=== PATIENT | female | born 2000 | race American Indian/Alaskan Native ===

== ENCOUNTER 2025-04-10 13:22 | Outpatient (AMB) | payer BC, SELFPAY ==
--- NOTE | 2025-04-10 13:27 | OBCLNT_ITS ---
Vital Signs 04/10/25 13:40 Height 1.6 m Height Method Stated Weight 93.213 kg BMI 36.3 BP 114/69 Blood Pressure Source Automatic Cuff Blood Pressure Location Left Upper Arm Position Sitting Respiration 16 Pulse 83 Pulse Source Monitor Temp 97.2 F Temp Source Oral Pulse Oximetry (%) 97 Oxygen Delivery Method Room Air Allergies/Home Meds Allergies & Medications Allergies No Known Allergies Allergy (Verified 04/10/25 13:41) Medication Reconciliation vits no.124-ferrous fum 27 mg iron-folic acid 800 mcg tablet ( Vitamin) 1 tab PO QDAY 12/20/23 [History Confirmed 04/10/25] ferrous sulfate 325 mg (65 mg iron) tablet 325 mg PO TID #60 tabs 12/21/23 [Rx Confirmed 04/10/25] ibuprofen 800 mg tablet 800 mg PO Q8H PRN pain #30 tabs 12/21/23 [Rx Confirmed 04/10/25] ferrous sulfate 325 mg (65 mg iron) tablet 325 mg PO BID #60 tabs 04/10/25 [Rx] Intake Visit Data Collection New Patient or Established: Established Patient (seen at [facility] within 3 years) Reason for Visit:: obi Seen by Clinical Staff ONLY (RN/MA): No Rn Labor And Delivery Required: No Do You Feel Safe at Home: Yes Authorities Contacted: N/A PCP or OBGYN visit in last 3 months: Yes Hx Now: Yes Are you currently on any form of Control: No Last menstrual period: 09/20/24 Pain Present Currently: No Pain Scale Used: Baum-Golden/Numerical Pain scale:: 0 Smoking Status Smoking Status: Never smoker Questionnaires Covid-19 Vaccine Questionnaire Has patient been vacinated for Covid-19 Have you been vacinated for Covid-19: No PHQ-9 PHQ-2 Over the last 2 weeks, how often have you been bothered by any of the following problems? 1. Little interest or pleasure in doing things: not at all 2. Feeling down, depressed, or hopeless: not at all Total score: 0 PHQ-9 3. Trouble falling or staying asleep, or sleeping too much: Not at all 4. Feeling tired or having little energy: Not at all 5. Poor appetite or overeating: Not at all 6. Feeling bad about yourself - or that you are a failure or have let yourself or your family down: Not at all 7. Trouble concentrating on things, such as reading the newspaper or watching television: Not at all 8. Moving or speaking so slowly that other people could have noticed? - Or the opposite - being so fidgety or restless that you have been moving around a lot more than usual: not at all 9. Thoughts that you would be better off or of hurting yourself in some way: Not at all Total score: 0 If you checked off any problems, how difficult have these problems made it for you to do your work, take care of things at home, or get along with other people?: not difficult at all Source: Developed by Drs. John Alonzo, Marsha Funez, Rakesh Bernabe and colleagues, with an educational uri from [employer]. Depression screen completed yes Social History Living Situation History Marital Status: Single Lives With: Family Housing: House Tobacco History Smoking Status: Never smoker Second Hand Smoke Exposure: No Alcohol History Alcohol Intake: Never Domestic Abuse History Do You Feel Safe at Home: Yes History of Present Illness HPI Narrative 25-year-old 4 para 3 for OBI. Last. September 19, 2024. Estimated due date June 26, 2025. Patient had a 3D scan at 28 weeks that also reported the same dates. She has had no care yet with patient denies any social habits. Denies surgeries. She has a history of anemia. And she had a delivery at 23 weeks. She reports that she had opted to get an was given laminaria and then decided she did not want to go through the had the laminaria removed and then delivered . Reports movement. Denies any complaints. 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: Past Medical History Past Medical History: No Hx Neurological Disorders, No Hx Cardiac Disorders, No Hx Cancer, Yes Hx Blood Disorders, Yes Hx Anemia, No Hx Gastrointestinal Disorders, No Hx Renal Disease, Yes Hx Diabetes Mellitus Type 1 (grandmother) and No Hx Diabetes Mellitus Type 2 OB Initial Visit Menstrual History Menstrual reliability: definite Flow: normal Menstrual regularity: regular Monthly: Yes Age at menarche: 14 On control pills at conception: No OB History : 5 Para: 3 Hx # Pregnancies: 0 Hx Total # of Abortions (Spontaneous & Elective): 1 # of Living Children: 3 Delivery History 1st : Child's name: trudy SINGH date: 12/23/19 sex: female Gestational age at delivery (weeks): 40 Delivery type: vaginal History of depression before or after : No 2nd : Child's name: MALKA NARAYANAN date: 08/30/22 sex: female Gestational age at delivery (weeks): 40 Delivery type: vaginal 3rd : Child's name: SWETA NARAYANAN date: 12/20/23 sex: male Gestational age at delivery (weeks): 23 Delivery type: vaginal Delivery complications: History of depression before or after : No Infection History & Risk Evaluation History of STDs: none HIV risk evaluation: low risk Hepatitis B risk evaluation: low risk Patient or partner has history of Genital Herpes: No Varicella/chicken pox status: immunized Genetic Screening & History Genetic Screening/Teratology Counseling - Includes patient, baby's father, or anyone in either family with: 1. Patient's age 35 years or older as of estimated date of delivery: No 2. Thalassemia (Slovenian, Croatian, Mediterranean, or Background); MCV less than 80: No 3. Neural Tube Defect (Meningomyelocele, Spina Bifida, or Anencephaly): No 4. Congenital Heart Defect: No 5. Down Syndrome: No 6. Yoseph-Sachs (Ashkenazi Restoration, Cajun, English Swedish): No 7. Martinez Disease (Ashkenazi Restoration): No 8. Familial Dysautonomia (Ashkenazi Restoration): No 9. Sickle Cell Disease or Trait (): No 10. Hemophilia or other blood disorders: No 11. Muscular Dystrophy: No 12. Cystic Fibrosis: No 13. Ravi's Chorea: No 14. Mental Retardation/Autism: No 15. Other inherited genetic or chromosomal disorder: No 16. Maternal Metabolic Disorder (EG,TYPE 1 Diabetes, PKU): No 17. Patient or baby's father had a child with defects not listed above: No 18. Recurrent loss or a stillbirth: No 19. Medications (including supplements, vitamins, herbs or otc drugs)/illicit/recreational drugs/alcohol since last menstrual period: No 20. Any other: No Infection History 1. Live with someone with TB or exposed to TB: No 2. Rash or viral illness since last menstrual period: No 3. Hepatitis B,C: No Other (see comments) Source: [employer] Review of Systems Review of Systems Systems Reviewed: All systems reviewed, normal except as documented Exam General Limitations: no limitations General Appearance: alert, in no apparent distress, comfortable, cooperative, healthy appearing, well developed and well groomed ENT ENT exam: Present normal exam, normal oropharynx and mucous membranes moist Neck Neck exam: Present normal inspection, full ROM and trachea midline Chest Chest inspection: Present normal inspection and symmetric chest wall rise Resp Respiratory exam: Present normal lung sounds bilaterally Card Cardiovascular exam: Present regular rate, normal rhythm and normal heart sounds Abdominal Abdominal exam: Present soft and normal bowel sounds Psych Psychiatric exam: Present normal affect and normal mood Office Procedures OBC Clinic LOC & Office Proc's Nursing/Assessment Patient Status: Established Patient OB Clinic Nursing Assessment: Medication Reconciliation, Update PMH in EMR and Vital Signs OB Clinic Coordination of Care: Consent,records obtained, informed consent, Education Simp Pt/Fam, Lab and Imaging orders, Results/Orders obtained and Staff clarify orders Special Needs: Heart tones Established Patient Charge Established Patient Point Assignment: 110 Established Patient Point Charge: EP Level 3 (80-115) Assessment & Plan Diagnosis / Problem List (1) Encounter for supervision of high risk in third trimester, antepartum: Status: Acute Plan schedule with MFM for anatomy scan, start iron, continue PNV. OB panel,A1c, 1 hr gtt, RPR, nipt and carrier screen. ptl precaution. rtc 3 week
[2025-04-10 13:40] VITALS: BP 114/69; PULSE 83; RESP 16; TEMP 36.2; O2SAT 97; BMI 36.3
== END 2025-04-10 14:07 | disposition home or self-care (01) ==
LOC: HODSOBC 13:22
PROVIDERS: Supervising Provider Advanced Practice Midwife; Visit Provider Advanced Practice Midwife
DX: O09.213 Supervision of pregnancy with history of pre-term labor, third trimester (principal); Z3A.00 Weeks of gestation of pregnancy not specified
CPT/HCPCS: 99213; G0463

== ENCOUNTER 2025-05-02 10:07 | Outpatient (AMB) | payer BC, SELFPAY ==
--- NOTE | 2025-05-02 10:15 | OBCLNT_ITS ---
Vital Signs 05/02/25 10:19 Height 1.6 m Height Method Stated Weight 93.043 kg Weight Measurement Method Standing Scale BMI 36.3 BP 116/73 Blood Pressure Source Automatic Cuff Blood Pressure Location Left Upper Arm Position Sitting Respiration 18 Pulse 86 Pulse Source Monitor Temp 97.2 F Temp Source Oral Pulse Oximetry (%) 98 Oxygen Delivery Method Room Air Allergies/Home Meds Allergies & Medications Allergies No Known Allergies Allergy (Verified 05/02/25 10:20) Medication Reconciliation vits no.124-ferrous fum 27 mg iron-folic acid 800 mcg tablet ( Vitamin) 1 tab PO QDAY 12/20/23 [History Confirmed 05/02/25] ferrous sulfate 325 mg (65 mg iron) tablet 325 mg PO TID #60 tabs 12/21/23 [Rx Confirmed 05/02/25] ibuprofen 800 mg tablet 800 mg PO Q8H PRN pain #30 tabs 12/21/23 [Rx Confirmed 05/02/25] ferrous sulfate 325 mg (65 mg iron) tablet 325 mg PO BID #60 tabs 05/02/25 [Rx] Intake Visit Data Collection New Patient or Established: Established Patient (seen at [facility] within 3 years) Reason for Visit:: OBC Seen by Clinical Staff ONLY (RN/MA): No Hoistman Required: No Do You Feel Safe at Home: Yes Authorities Contacted: N/A PCP or OBGYN visit in last 3 months: Yes Date of Last PCP or OBGYN visit: 04/10/25 Hx Now: Yes Are you currently on any form of Control: No Pain Present Currently: No Pain Scale Used: Baum-Golden/Numerical Pain scale:: 0 Smoking Status Smoking Status: Never smoker Immunizations Flu Vaccine in the Last 12 Months: No Flu Vaccine Exclusion Criteria: No Exclusion Criteria Questionnaires Covid-19 Vaccine Questionnaire Has patient been vacinated for Covid-19 Have you been vacinated for Covid-19: No PHQ-9 PHQ-2 Over the last 2 weeks, how often have you been bothered by any of the following problems? 1. Little interest or pleasure in doing things: not at all 2. Feeling down, depressed, or hopeless: not at all Total score: 0 PHQ-9 3. Trouble falling or staying asleep, or sleeping too much: Not at all 4. Feeling tired or having little energy: Not at all 5. Poor appetite or overeating: Not at all 6. Feeling bad about yourself - or that you are a failure or have let yourself or your family down: Not at all 7. Trouble concentrating on things, such as reading the newspaper or watching television: Not at all 8. Moving or speaking so slowly that other people could have noticed? - Or the opposite - being so fidgety or restless that you have been moving around a lot more than usual: not at all 9. Thoughts that you would be better off or of hurting yourself in some way: Not at all Total score: 0 If you checked off any problems, how difficult have these problems made it for you to do your work, take care of things at home, or get along with other people?: not difficult at all Source: Developed by Drs. John Alonzo, Marsha Funez, Rakesh Bernabe and colleagues, with an educational uri from [employer]. 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 no PNC. late care. patient had 3d sono for date at 20 week and confirmed dates, no leaking, bleeding or uc Schedul e patient with maternal- medicine at [facility] for anatomy scan. NIPT and carrier screens today. We also ordered OB panel, 1 hour GTT, hemoglobin A1c. RPR. I started patient on iron to take twice a day. Discussed labor precautions. Return in 3 weeks for OB check 05/02/25 -?-?-?-?-?-?-?-?-?-?-?-?- 32w 1d 93.043 kg 116/73 absent cephalic 31 135 active Declined Tdap. Reports good movement. Denies labor complaints. Denies leaking or bleeding. Patient was scheduled at [facility] for ultrasound. Reviewed labs. Schedule patient at [facility] for ultrasound. Discussed labor precautions. Patient declined Tdap. Return in 2 weeks for OB check. SAMUEL Calculator Estimated Delivery Date Method Current WG Current Estimate 06/26/25 LMP (Certain) 32w 1d Notes Visit Date: 05/02/25 Last Updated by: Susie Daly CNM ob panel; O+,abs-, rpr;;nr, rub imm, hbsag-,hiv-, GC/CT-, HC-, 1 hr gtt: 129. NIPT/sma/CF- Visit Date: 04/10/25 Last Updated by: Susie Daly CNM 25 yo , late care. lmp 09/19/24. EDC: 06/26/25 Office Procedures OBC Clinic LOC & Office Proc's Nursing/Assessment Patient Status: Established Patient OB Clinic Nursing Assessment: Medication Reconciliation, Update PMH in EMR and Vital Signs OB Clinic Coordination of Care: Consent,records obtained, informed consent, Education Simp Pt/Fam, Lab and Imaging orders, Results/Orders obtained and Staff clarify orders Special Needs: Heart tones Established Patient Charge Established Patient Point Assignment: 110 Established Patient Point Charge: EP Level 3 (80-115) Assessment & Plan Diagnosis / Problem List (1) Encounter for supervision of high risk in third trimester, antepartum: Status: Acute Plan Continue iron twice a day. Reviewed labs. Reschedule patient at [facility] for ultrasound. Discussed labor precautions and kick count. Patient declined Tdap today. Return in 2 weeks OB check Additional Plan Follow Up: 2 Weeks (obc)
[2025-05-02 10:19] VITALS: BP 116/73; PULSE 86; RESP 18; TEMP 36.2; O2SAT 98; BMI 36.3
== END 2025-05-02 10:44 | disposition home or self-care (01) ==
LOC: HODSOBC 10:07
PROVIDERS: Supervising Provider Advanced Practice Midwife; Visit Provider Advanced Practice Midwife
DX: O09.33 Supervision of pregnancy with insufficient antenatal care, third trimester (principal); Z3A.32 32 weeks gestation of pregnancy; Z28.21 Immunization not carried out because of patient refusal
CPT/HCPCS: 99213; G0463

== ENCOUNTER 2025-05-19 14:02 | Outpatient (AMB) | payer BC, SELFPAY ==
--- NOTE | 2025-05-19 14:12 | OBCLNT_ITS ---
Vital Signs 05/19/25 14:21 Height 1.6 m Height Method Stated Weight 96.615 kg Weight Measurement Method Standing Scale BMI 37.7 BP 130/70 Blood Pressure Source Automatic Cuff Blood Pressure Location Left Upper Arm Position Sitting Respiration 18 Pulse 106 H Pulse Source Monitor Temp 97.2 F Temp Source Oral Pulse Oximetry (%) 98 Oxygen Delivery Method Room Air Allergies/Home Meds Allergies & Medications Allergies No Known Allergies Allergy (Verified 05/19/25 14:16) Medication Reconciliation vits no.124-ferrous fum 27 mg iron-folic acid 800 mcg tablet ( Vitamin) 1 tab PO QDAY 12/20/23 [History Confirmed 05/19/25] ferrous sulfate 325 mg (65 mg iron) tablet 325 mg PO TID #60 tabs 12/21/23 [Rx Confirmed 05/19/25] ibuprofen 800 mg tablet 800 mg PO Q8H PRN pain #30 tabs 12/21/23 [Rx Confirmed 05/19/25] ferrous sulfate 325 mg (65 mg iron) tablet 325 mg PO BID #60 tabs 05/02/25 [Rx Confirmed 05/19/25] Immunizations Immunizations Flu Vaccine in the Last 12 Months: Yes Flu Vaccine Exclusion Criteria: Already Received Care OB Visit Log OB Flowsheet Initial Weight: Not Recorded Date -?-?-?-?-?-?--?-?-?-?-?-?- EGA Weight BP Alb Glu CTX Pres Fundal ht FHR Mov Dilation Station Effacement Hx Notes Visit Note 04/10/25 -?-?-?-?-?-?-?-?-?-?-?-?- 29w 0d 93.213 kg 114/69 absent unknown 29 135 active 25 yo for OBI. no PNC. late care. patient had 3d sono for date at 20 week and confirmed dates, no leaking, bleeding or uc Schedule patient with maternal- medicine at [facility] for anatomy scan. NIPT and carrier screens today. We also ordered OB panel, 1 hour GTT, hemoglobin A1c. RPR. I started patient on iron to take twice a day. Discussed labor precautions. Return in 3 weeks for OB check 05/02/25 -?-?-?-?-?-?-?-?-?-?-?-?- 32w 1d 93.043 kg 116/73 absent cephalic 31 135 active Declined Tdap. Reports good movement. Denies labor complaints. Denies leaking or bleeding. Patient was scheduled at [facility] for ultrasound. Reviewed labs. Schedule patient at [facility] imaging for ultrasound. Discussed labor precautions. Patient declined Tdap. Return in 2 weeks for OB check. 05/19/25 -?-?-?-?-?-?-?-?-?-?-?-?- 34w 4d 96.615 kg 130/70 absent cephalic 34 135 active Biggest baby weighed 9-1/2 pounds. Reports good movement. Denies any contractions. No leaking. Patient states that her dates are sure. Reviewed labs reports good movement. Denies leaking, bleeding, contractions Kick count twice a day. Repeat ultrasound next visit to compare for dating. Discussed labor precautions. And danger signs symptoms return a week OB to. GBS today SAMUEL Calculator Estimated Delivery Date Method Current WG Current Estimate 06/26/25 LMP (Certain) 34w 4d Other Estimates 06/10/25 Ultrasound #1 36w 6d Notes Visit Date: 05/02/25 Last Updated by: Susie Daly CNM ob panel; O+,abs-, rpr;;nr, rub imm, hbsag-,hiv-, GC/CT-, HC-, 1 hr gtt: 129. NIPT/sma/CF- Visit Date: 04/10/25 Last Updated by: Susie Daly CNM 25 yo , late care. lmp 09/19/24. EDC: 06/26/25 Office Procedures OBC Clinic LOC & Office Proc's Nursing/Assessment Patient Status: Established Patient OB Clinic Nursing Assessment: Medication Reconciliation, Update PMH in EMR and Vital Signs OB Clinic Coordination of Care: Consent,records obtained, informed consent, Education Simp Pt/Fam, Lab and Imaging orders, Results/Orders obtained and Staff clarify orders Special Needs: Heart tones Established Patient Charge Established Patient Point Assignment: 110 Established Patient Point Charge: EP Level 3 (80-115) Assessment & Plan Diagnosis / Problem List (1) Encounter for supervision of high risk in third trimester, antepartum: Status: Acute Plan GBS today. Discussed labor precautions. Kick count twice a day. Discussed diet and weight. Reviewed dates with patient. Will repeat another ultrasound next week to compare Additional Plan Follow Up: 1 Week (obc)
[2025-05-19 14:21] VITALS: BP 130/70; PULSE 106; RESP 18; TEMP 36.2; O2SAT 98; BMI 37.7
== END 2025-05-19 14:53 | disposition home or self-care (01) ==
LOC: HODSOBC 14:02
PROVIDERS: Supervising Provider Advanced Practice Midwife; Visit Provider Advanced Practice Midwife
DX: O09.93 Supervision of high risk pregnancy, unspecified, third trimester (principal); Z3A.34 34 weeks gestation of pregnancy; Z36.85 Encounter for antenatal screening for Streptococcus B
CPT/HCPCS: 99213; G0463

== ENCOUNTER 2025-05-23 09:25 | Outpatient (AMB) | payer BC, SELFPAY ==
[2025-05-23 09:52] VITALS: BP 119/70; PULSE 83; RESP 18; TEMP 36.5; O2SAT 97; BMI 37.9
--- NOTE | 2025-05-23 09:52 | OBCLNT_ITS ---
Vital Signs 05/23/25 09:52 Height 1.6 m Height Method Stated Weight 97.182 kg Weight Measurement Method Standing Scale BMI 37.9 BP 119/70 Blood Pressure Source Automatic Cuff Blood Pressure Location Right Upper Arm Position Sitting Respiration 18 Pulse 83 Pulse Source Monitor Temp 97.7 F Temp Source Temporal Artery Scan Pulse Oximetry (%) 97 Oxygen Delivery Method Room Air Allergies/Home Meds Allergies & Medications Allergies No Known Allergies Allergy (Verified 05/23/25 09:53) Medication Reconciliation vits no.124-ferrous fum 27 mg iron-folic acid 800 mcg tablet ( Vitamin) 1 tab PO QDAY 12/20/23 [History Confirmed 05/23/25] ferrous sulfate 325 mg (65 mg iron) tablet 325 mg PO TID #60 tabs 12/21/23 [Rx Confirmed 05/23/25] ibuprofen 800 mg tablet 800 mg PO Q8H PRN pain #30 tabs 12/21/23 [Rx Confirmed 05/23/25] ferrous sulfate 325 mg (65 mg iron) tablet 325 mg PO BID #60 tabs 05/02/25 [Rx Confirmed 05/23/25] Immunizations Immunizations Flu Vaccine in the Last 12 Months: Yes Date of most recent flu vaccination: 05/19/25 Flu Vaccine Exclusion Criteria: Already Received Care OB Visit Log OB Flowsheet Initial Weight: Not Recorded Date -?-?-?-?-?-?-?-?-?-?-?-?- EGA Weight BP Alb Glu CTX Pres Fundal ht FHR Mov Dilation Station Effacement Hx Notes Visit Note 04/10/25 -?-?-?-?-?-?-?-?-?-?-?-?- 31w 2d 93.213 kg 114/69 absent unknown 29 135 active 25 yo for OBI. no PNC. late care. patient had 3d sono for date at 20 week and confirmed dates, no leaking, bleeding or uc Schedule patient with maternal- medicine at [facility] for anatomy scan. NIPT and carrier screens today. We also ordered OB panel, 1 hour GTT, hemoglobin A1c. RPR. I started patient on iron to take twice a day. Discussed labor precautions. Return in 3 weeks for OB check 05/02/25 -?-?-?-?-?-?-?-?-?-?-?-?- 34w 3d 93.043 kg 116/73 absent cephalic 31 135 active Declined Tdap. Reports good movement. Denies labor complaints. Denies leaking or bleeding. Patient was scheduled at [facility] for ultrasound. Reviewed labs. Schedule patient at [facility] imaging for ultrasound. Discussed labor precautions. Patient declined Tdap. Return in 2 weeks for OB check. 05/19/25 -?-?-?-?-?-?-?-?-?-?-?-?- 36w 6d 96.615 kg 130/70 absent cephalic 34 135 active Biggest baby weighed 9-1/2 pounds. Reports good movement. Denies any contractions. No leaking. Patient states that her dates are sure. Reviewed labs reports good movement. Denies leaking, bleeding, contractions Kick count twice a day. Repeat ultrasound next visit to compare for dating. Discussed labor precautions. And danger signs symptoms return a week OB to. GBS today 05/23/25 -?-?-?-?-?-?-?-?-?-?-?-?- 37w 3d 97.182 kg 119/70 frequent cephalic 37 1 35 active Reports good movement. Denies leaking or bleeding. Increased contractions and pressure. Repeat GBS today because it was not ran. Discussed labor precautions and kick count. Discussed ER precautions and return in a week OB check SAMUEL Calculator Estimated Delivery Date Method Current WG Current Estimate 06/10/25 Ultrasound #1 37w 3d Other Estimates 06/26/25 LMP (Certain) 35w 1d Notes Visit Date: 05/02/25 Last Updated by: Susie Daly CNM ob panel; O+,abs-, rpr;;nr, rub imm, hbsag-,hiv-, GC/CT-, HC-, 1 hr gtt: 129. NIPT/sma/CF- Visit Date: 04/10/25 Last Updated by: Susie Daly CNM 25 yo , late care. lmp 09/19/24. EDC: 06/26/25 Office Procedures OBC Clinic LOC & Office Proc's Nursing/Assessment Patient Status: Established Patient OB Clinic Nursing Assessment: Medication Reconciliation, Update PMH in EMR and Vital Signs OB Clinic Coordination of Care: Complex Care and Chronic Disease 1-5, Education Complex Pt/Fam, Consent,records obtained, informed consent, Lab and Imaging orders, Results/Orders obtained and Staff clarify orders Special Needs: Heart tones Established Patient Charge Established Patient Point Assignment: 140 Established Patient Point Charge: EP Level 4 (120-155) Assessment & Plan Diagnosis / Problem List (1) Encounter for supervision of high risk in third trimester, antepartum: Status: Acute Plan Repeat GBS today. It was not picked up. Discussed labor precautions. Discussed kick count. Return in a week OB check Additional Plan Follow Up: 1 Week (obc)
== END 2025-05-23 11:00 | disposition home or self-care (01) ==
LOC: HODSOBC 09:25
PROVIDERS: Supervising Provider Advanced Practice Midwife; Visit Provider Advanced Practice Midwife
DX: O09.893 Supervision of other high risk pregnancies, third trimester (principal); O47.1 False labor at or after 37 completed weeks of gestation; Z3A.37 37 weeks gestation of pregnancy; Z36.85 Encounter for antenatal screening for Streptococcus B
CPT/HCPCS: 99214; G0463

== ENCOUNTER 2025-06-01 08:48 | Outpatient (AMB) | payer BC, SELFPAY ==
[2025-06-01 08:51] VITALS: BP 103/70; PULSE 79; RESP 18; TEMP 36.4; O2SAT 98; BMI 38.0
--- NOTE | 2025-06-01 08:51 | OBCLNT_ITS ---
Vital Signs 06/01/25 08:51 Height 1.6 m Height Method Stated Weight 97.522 kg Weight Measurement Method Standing Scale BMI 38.0 BP 103/70 Blood Pressure Source Automatic Cuff Blood Pressure Location Right Upper Arm Position Sitting Respiration 18 Pulse 79 Pulse Source Monitor Temp 97.6 F Temp Source Temporal Artery Scan Pulse Oximetry (%) 98 Oxygen Delivery Method Room Air Allergies/Home Meds Allergies & Medications Allergies No Known Allergies Allergy (Verified 06/01/25 08:54) Medication Reconciliation vits no.124-ferrous fum 27 mg iron-folic acid 800 mcg tablet ( Vitamin) 1 tab PO QDAY 12/20/23 [History Confirmed 06/01/25] ferrous sulfate 325 mg (65 mg iron) tablet 325 mg PO TID #60 tabs 12/21/23 [Rx Confirmed 06/01/25] ibuprofen 800 mg tablet 800 mg PO Q8H PRN pain #30 tabs 12/21/23 [Rx Confirmed 06/01/25] ferrous sulfate 325 mg (65 mg iron) tablet 325 mg PO BID #60 tabs 05/02/25 [Rx Confirmed 06/01/25] Immunizations Immunizations Flu Vaccine in the Last 12 Months: Yes Date of most recent flu vaccination: 03/20/25 Flu Vaccine Exclusion Criteria: Already Received Care OB Visit Log OB Flowsheet Initial Weight: Not Recorded Date -?-?-?-?-?-?-?-?-?-?-?-?- EGA Weight BP Alb Glu CTX Pres Fundal ht FHR Mov Dilation Station Effacement Hx Notes Visit Note 04/10/25 -?-?-?-?-?-?-?-?-?-?-?-?- 31w 2d 93.213 kg 114/69 absent unknown 29 135 active 25 yo for OBI. no PNC. late care. patient had 3d sono for date at 20 week and confirmed dates, no leaking, bleeding or uc Schedule patient with maternal- medicine at [facility] for anatomy scan. NIPT and carrier screens today. We also ordered OB panel, 1 hour GTT, hemoglobin A1c. RPR. I started patient on iron to take twice a day. Discussed labor precautions. Return in 3 weeks for OB check 05/02/25 -?-?-?-?-?-?-?-?-?-?-?-?- 34w 3d 93.043 kg 116/73 absent cephalic 31 135 active Declined Tdap. Reports good movement. Denies labor complaints. Denies leaking or bleeding. Patient was scheduled at [facility] for ultrasound. Reviewed labs. Schedule patient at [facility] imaging for ultrasound. Discussed labor precautions. Patient declined Tdap. Return in 2 weeks for OB check. 05/19/25 -?-?-?-?-?-?-?-?-?-?-?-?- 36w 6d 96.615 kg 130/70 absent cephalic 34 135 active Biggest baby weighed 9-1/2 pounds. Reports good movement. Denies any contractions. No leaking. Patient states that her dates are sure. Reviewed labs reports good movement. Denies leaking, bleeding, contractions Kick count twice a day. Repeat ultrasound next visit to compare for dating. Discussed labor precautions. And danger signs symptoms return a week OB to. GBS today 05/23/25 -?-?-?-?-?-?-?-?-?-?-?-?- 37w 3d 97.182 kg 119/70 frequent cephalic 37 1 35 active Reports good movement. Denies leaking or bleeding. Increased contractions and pressure. Repeat GBS today because it was not ran. Discussed labor precautions and kick count. Discussed ER precautions and return in a week OB check 06/01/25 -?-?-?-?-?-?-?-?--?-?-?-?- 38w 5d 97.522 kg 103/70 frequent cephalic 38 1 35 active 1 -3 50 Reports movement. Occasional contraction and pressure. Complains of back pain. Denies leaking or bleeding Kick count t wice a day. Discussed labor precautions. ER precautions reviewed. Comfort measures for back pain. Discussed labor precautions. Return week OB SAMUEL Calculator Estimated Delivery Date Method Current WG Current Estimate 06/10/25 Ultrasound #1 38w 5d Other Estimates 06/26/25 LMP (Certain) 36w 3d Notes Visit Date: 06/01/25 Last Updated by: Susie Daly CNM GBS- Visit Date: 05/02/25 Last Updated by: Susie Daly CNM ob panel; O+,abs-, rpr;;nr, rub imm, hbsag-,hiv-, GC/CT-, HC-, 1 hr gtt: 129. NIPT/sma/CF- Visit Date: 04/10/25 Last Updated by: Susie Daly CNM 25 yo , late care. lmp 09/19/24. EDC: 06/26/25 Office Procedures OBC Clinic LOC & Office Proc's Nursing/Assessment Patient Status: Established Patient OB Clinic Nursing Assessment: Medication Reconciliation, Update PMH in EMR and Vital Signs OB Clinic Coordination of Care: Complex Care and Chronic Disease 1-5, Education Complex Pt/Fam, Consent,records obtained, informed consent, Lab and Imaging orders, Results/Orders obtained and Staff clarify orders Special Needs: Heart tones Established Patient Charge Established Patient Point Assignment: 140 Established Patient Point Charge: EP Level 4 (120-155) Assessment & Plan Diagnosis / Problem List (1) Encounter for supervision of high risk in third trimester, antepartum: Status: Acute Plan Labor precautions reviewed. Kick count twice a day. Discussed ER precautions. Return week OB check Additional Plan Follow Up: 1 Week (obc)
== END 2025-06-01 09:14 | disposition home or self-care (01) ==
LOC: HODSOBC 08:48
PROVIDERS: Supervising Provider Advanced Practice Midwife; Visit Provider Advanced Practice Midwife
DX: O09.893 Supervision of other high risk pregnancies, third trimester (principal); O99.891 Other specified diseases and conditions complicating pregnancy; M54.9 Dorsalgia, unspecified; O47.1 False labor at or after 37 completed weeks of gestation; Z3A.38 38 weeks gestation of pregnancy
CPT/HCPCS: 99214; G0463

== ENCOUNTER 2025-06-12 09:21 | Outpatient (AMB) | payer BC, SELFPAY ==
[2025-06-12 09:29] VITALS: BP 114/68; PULSE 80; RESP 16; TEMP 36.5; O2SAT 97; BMI 38.2
--- NOTE | 2025-06-12 09:29 | OBCLNT_ITS ---
Vital Signs 06/12/25 09:29 Height 1.6 m Height Method Stated Weight 97.976 kg Weight Measurement Method Standing Scale BMI 38.2 BP 114/68 Blood Pressure Source Automatic Cuff Blood Pressure Location Left Upper Arm Position Sitting Respiration 16 Pulse 80 Pulse Source Monitor Temp 97.7 F Temp Source Oral Pulse Oximetry (%) 97 Oxygen Delivery Method Room Air Allergies/Home Meds Allergies & Medications Allergies No Known Allergies Allergy (Verified 06/12/25 09:37) Medication Reconciliation vits no.124-ferrous fum 27 mg iron-folic acid 800 mcg tablet ( Vitamin) 1 tab PO QDAY 12/20/23 [History Confirmed 06/12/25] ferrous sulfate 325 mg (65 mg iron) tablet 325 mg PO TID #60 tabs 12/21/23 [Rx Confirmed 06/12/25] ferrous sulfate 325 mg (65 mg iron) tablet 325 mg PO BID #60 tabs 05/02/25 [Rx Confirmed 06/12/25] Immunizations Immunizations Flu Vaccine in the Last 12 Months: Yes Flu Vaccine Exclusion Criteria: Already Received Care OB Visit Log OB Flowsheet Initial Weight: Not Recorded Date -?-?-?-?-?-?-?-?-?-?-?-?- EGA Weight BP Alb Glu CTX Pres Fundal ht FHR Mov Dilation Station Effacement Hx Notes Visit Note 04/10/25 -?-?-?-?-?-?-?-?-?-?-?-?- 31w 2d 93.213 kg 114/69 absent unknown 29 135 active 25 yo for OBI. no PNC. late care. patient had 3d sono for date at 20 week and confirmed dates, no leaking, bleeding or uc Schedule patient with maternal- medicine at [facility] for anatomy scan. NIPT and carrier screens today. We also ordered OB panel, 1 hour GTT, hemoglobin A1c. RPR. I started patient on iron to take twice a day. Discussed labor precautions. Return in 3 weeks for OB check 05/02/25 -?-?-?-?-?-?-?-?-?-?-?-?- 34w 3d 93.043 kg 116/73 absent cephalic 31 135 active Declined Tdap. Reports good movement. Denies labor complaints. Denies leaking or bleeding. Patient was scheduled at [facility] for ultrasound. Reviewed labs. Schedule patient at [facility] imaging for ultrasound. Discussed labor precautions. Patient declined Tdap. Return in 2 weeks for OB check. 05/19/25 -?-?-?-?-?-?-?-?-?-?-?-?- 36w 6d 96.615 kg 130/70 absent cephalic 34 135 active Biggest baby weighed 9-1/2 pounds. Reports good movement. Denies any contractions. No leaking. Patient states that her dates are sure. Reviewed labs reports good movement. Denies leaking, bleeding, contractions Kick count twice a day. Repeat ultrasound next visit to compare for dating. Discussed labor precautions. And danger signs symptoms return a week OB to. GBS today 05/23/25 -?-?-?-?-?-?-?-?-?-?-?-?- 37w 3d 97.182 kg 119/70 frequent cephalic 37 1 35 active Reports good movement. Denies leaking or bleeding. Increased contractions and pressure. Repeat GBS today because it was not ran. Discussed labor precautions and kick count. Discussed ER precautions and return in a week OB check 06/01/25 -?-?-?-?-?-?-?-?-?-?-?-?- 38w 5d 97.522 kg 103/70 frequent cephalic 38 1 35 active 1 -3 50 Reports movement. Occasional contraction and pressure. Complains of back pain. Denies leaking or bleeding Kick count t wice a day. Discussed labor precautions. ER precautions reviewed. Comfort measures for back pain. Discussed labor preca utions. Return week OB 06/12/25 -?-?-?-?-?-?-?-?-?-?-?-?- 40w 2d 97.976 kg 114/68 occasional cephalic 40 135 active 1 -3 50 CX soft, patient reports good movement. Denies leaking or bleeding. Occasional contraction. Vaginal Kick count twice a day reviewed. Schedule induction of labor for June 16. Patient got instructions. I encouraged patient to walking continue being active which he to get her labor going. Discussed ER precautions and danger signs symptoms. Return in a week if undelivered SAMUEL Calculator Estimated Delivery Date Method Current WG Current Estimate 06/10/25 Ultrasound #1 40w 2d Other Estimates 06/26/25 LMP (Certain) 38w 0d Notes Visit Date: 06/01/25 Last Updated by: Susie Daly CNM GBS- Visit Date: 05/02/25 Last Updated by: Susie Daly CNM ob panel; O+,abs-, rpr;;nr, rub imm, hbsag-,hiv-, GC/CT-, HC-, 1 hr gtt: 129. NIPT/sma/CF- Visit Date: 04/10/25 Last Updated by: Susie Daly CNM 25 yo , late care. lmp 09/19/24. EDC: 06/26/25 Office Procedures OBC Clinic LOC & Office Proc's Nursing/Assessment Patient Status: Established Patient OB Clinic Nursing Assessment: Medication Reconciliation, Update PMH in EMR and Vital Signs OB Clinic Coordination of Care: Complex Care and Chronic Disease 1-5, Consent,records obtained, informed consent, Education Simp Pt/Fam, 1 Ins Authorization, Lab and Imaging orders, Results/Orders obtained and Staff clarify orders Special Needs: Heart tones Miscellaneous Interventions: Pelvic no cultures Established Patient Charge Established Patient Point Assignment: 160 Established Patient Point Charge: EP Level 5 (160-above) Assessment & Plan Diagnosis / Problem List (1) Encounter for supervision of high risk in third trimester, antepartum: Status: Acute Plan Schedule induction for June 15. Discussed labor precautions. Kick count twice a day. Discussed ER precautions and danger signs symptoms. Comfort measures for early labor. Return in a week if undelivered Additional Plan Follow Up: 1 Week (obc)
== END 2025-06-12 10:57 | disposition home or self-care (01) ==
LOC: HODSOBC 09:21
PROVIDERS: Supervising Provider Advanced Practice Midwife; Visit Provider Advanced Practice Midwife
DX: O09.893 Supervision of other high risk pregnancies, third trimester (principal); O48.0 Post-term pregnancy; Z3A.40 40 weeks gestation of pregnancy
CPT/HCPCS: 99215; G0463

== ENCOUNTER 2025-06-17 13:23 | Inpatient (IN) | payer BC, SELFPAY ==
[2025-06-17 11:12] VITALS: BP 107/60; PULSE 103
--- NOTE | 2025-06-17 11:15 | XR_ITS ---
Examination: Complete OB ultrasound greater than 14 weeks Date and time of exam: June 17, 2025, 1143 hours INDICATIONS: Limited care Findings: Viable intrauterine single fetus with single amniotic sac presentation cephalic Cardiac motion 158 bpm Placenta posterior grade 2 Umbilical cord insertion seen. Amniotic fluid index 3.1 cm Cervix 3.1 cm Ovaries obscured by bowel gas. Composite estimated gestational age based on BPD, head circumference, abdominal circumference, femur length is 39 weeks 3 days Estimated weight 3951 g. Survey of intracranial anatomy, spinal anatomy, abdominal anatomy, four-chamber heart performed with no abnormalities identified. Impression: Viable intrauterine gestation cephalic presentation.
[2025-06-17 11:22] VITALS: BP 107/60; RESP 16; RESP 98; TEMP 36.8; BMI 35.2
[2025-06-17 13:34] VITALS: BP 133/78; PULSE 100
[2025-06-17 14:36] LABS: Basophils # (Auto) 0.0 Thou/mm3 (0.0-0.2); Basophils % (Auto) 0 % (0-2.5); Eosinophils # (Auto) 0.1 Thou/mm3 (0.0-0.5); Eosinophils % (Auto) 1 % (0-10); Hematocrit 29.9 % (36.0-46.0); Hemoglobin 9.0 g/dL (12.0-16.0); Immature Granulocytes Auto 0.05 Thou/mm3 (0.00-0.00); Lymphocytes # (Auto) 1.6 Thou/mm3 (1.0-4.8); Lymphocytes % (Auto) 18 % (10-50); Mean Corpuscular HGB Conc 30.1 g/dl (31.0-37.0); Mean Corpuscular Hemoglobin 22.3 pg (25.0-35.0); Mean Corpuscular Volume 74 fL (80-100); Monocytes # (Auto) 0.6 Thou/mm3 (0.0-0.8); Monocytes % (Auto) 6 % (0-12); Neutrophils # (Auto) 6.6 Thou/mm3 (1.8-7.7); Neutrophils % (Auto) 74 % (37-80); Nucleated Red Blood Cell # 0.00 Thou/mm3 (0.00-0.00); Nucleated Red Blood Cell % 0 /100 WBC (0); Platelet Count 272 Thou/mm3 (140-440); RDW Standard Deviation 45.4 fL (36.4-46.3); Red Blood Count 4.04 Miln/mm3 (4.00-5.20); White Blood Count 9.0 Thou/mm3 (3.6-11.0)
[2025-06-17 15:29] LABS: Influenza A Ag Negative; Influenza B Ag Negative
[2025-06-17 15:36] LABS: Syphilis Nonreactive (Nonreactive)
[2025-06-17] MEDS: PROMETHAZINE HCL SYRUP 6.25 MG/5 ML UDC 25 MG PO (16:44)
[2025-06-17] MEDS: BENZONATATE 100 MG CAPSULE 200 MG PO (16:44)
[2025-06-17 18:09] LABS: Amphetamine/Metham Scrn,Ur OB Negative (Negative); Benzoylecgonine Screen, Ur OB Negative (Negative); Opiate Screen,Urine OB Negative (Negative); THC Screen,Urine OB Negative (Negative)
--- NOTE | 2025-06-17 18:10 | ESHP_ITS ---
Documentation for date of: 06/17/25 OB Labor/Induct. HPI History of Present Illness Chief complaint: Oligohydramnios : 5 Para: 3 Term pregnancies: 3 pregnancies: 0 Living children: 3 History of Abortions: Spontaneous and Elective: 1 History of Vaginal deliveries: 3 History of sections: No History of : No Date of last menstrual period: 09/19/24 SAMUEL: 06/26/25 Gestational Age (weeks): 38 Gestational Age (days): 5 Gestational age based on last menstrual period: 38 History of present illness: Patient is a 5 para 3-0-1-3 at 38 weeks and 5 days who is presenting to labor and delivery triage. Patient was scheduled for induction of labor for late term due to an error in her dates her dates were changed and she was brought in for NST and biophysical profile. 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 Today on presentation she was noted to have oligohydramnios and she was admitted for induction of labor. Her record was reviewed as per available information in the chart. Her labs were reviewed and are as follows Initial labs done on 04/11/2025 shows hepatitis B negative hepatitis C negative RPR nonreactive rubella is nonimmune blood group is O+ antibody screen negative HIV nonreactive gonorrhea and Chlamydia negative hemoglobin 10.3 A1c was 5.5 gestational 1 hour diabetes screen was 137 NIPT negative for trisomies of 1318 and 21 gender consistent with male SMA and CF screening is negative Group B strep negative on 05/19/2020 History of Present Adequate Care: Yes Labs Labs: Negative: RPR, Hepatitis B, Rubella Titre, HIV, Chlamydia, Gonorrhea and Group Beta Strep and Unknown: Herpes Type 1, Herpes Type 2 and Covid-19 Review of Systems Review of Systems Systems Reviewed: All systems reviewed, normal except as documented Past Medical History Surgical History SURGICAL: Negative Section Meds Home Medications and Allergies Home Medications ?Medication ?Instructions ?Recorded ?Confirmed ?Type vits no.124-ferrous fum 1 tab PO QDAY 12/19/2 4 06/17/25 History 27 mg iron-folic acid 800 mcg tablet ( Vitamin) Allergies Allergy/AdvReac Type Severity Reaction Status Date / Time No Known Allergies Allergy Verified 06/17/25 12:01 OB Exam Physical Exam Vital signs: Temp Pulse Resp BP 98.2 F 100 16 133/78 H 06/17/25 11:22 06/17/25 13:34 06/17/25 11:22 06/17/25 13:34 Constitutional Constitutional: no acute distress Routine HEENT Exam Head: Present normocephalic and atraumatic Eye: Present EOMI and PERRL ENT: Present mucous membranes moist Routine Neck Exam Neck: Present supple and trachea midline Routine Cardiovascular Exam Cardiovascular: Present RRR Routine Abdominal Exam Abdominal: Present soft and normoactive bowel sounds Detailed Labor and Delivery Exam Dilation (cm): 1 Effacement (%): 50 Cervix position: posterior station: -3 Consistency: firm Presentation: Vertex Membranes: intact Baseline heart rate: 135 monitor accelerations: 15x15 monitor decelerations: None Routine Extremities Exam Extremities: Present full ROM Routine Skin Exam Skin: Present intact, dry and warm Routine Neurological Exam Neurological: Present alert, oriented X3 and CN II-XII intact Routine Psychiatric Exam Psychiatric: Present normal affect and normal thought process OB Results Labs 06/17/25 13:30 Labs: Short CBC 06/17/25 Range/Units 13:30 WBC 9.0 (3.6-11.0) Thou/mm3 Hgb 9.0 L (12.0-16.0) g/dL Hct 29.9 L (36.0-46.0) % Plt Count 272 (140-440) Thou/mm3 OB Assessment & Plan Assessment and Plan (1) Encounter for supervision of high risk in third trimester, antepartum: Status: Acute Assessment and plan: Assessment: Intrauterine at 38 weeks 5 days, admitted for induction of labor due to oligohydramnios, meeting criteria for inpatient management. Maternal status stable. heart tracing Category 1. Pena score not favorable. Presentation cephalic. GBS negative. complicated by multiparity and oligohydramnios. Plan: ? Admit to Labor & Delivery for medically indicated induction of labor. ? Continuous electronic monitoring due to induction of labor and obstetric risk profile. ? Establish IV access and initiate IV fluids per protocol. ? Obtain CBC and Type & Screen given anticipated delivery and hemorrhage risk. ? Initiate induction using [CERVICAL RIPENING AGENT / MECHANICAL DILATION / OXYTOCIN] per protocol. ? Artificial rupture of membranes when clinically appropriate. ? Epidural anesthesia per patient request; anesthesia consult placed. ? GBS prophylaxis per CDC/ACOG protocol if not indicated. ? Anticipate vaginal delivery with serial reassessment of labor progress and status. ? Active management of third stage of labor to minimize hemorrhage risk. ? hemorrhage risk assessed as high; uterotonics available. ? Plan of care discussed with patient; informed consent obtained and questions answered.
[2025-06-17 19:36] VITALS: BP 127/73; PULSE 91
[2025-06-17 21:15] VITALS: BP 127/60; PULSE 79
[2025-06-18] VITALS (71 sets, daily range): BP systolic 111–128; BP diastolic 54–83; PULSE 65–94; RESP 14–20; TEMP 36.4–36.9; O2SAT 92–99
[2025-06-18] MEDS: BENZONATATE 100 MG CAPSULE 200 MG PO (02:36)
[2025-06-18] MEDS: fentaNYL CIT INJ 50 mCg/ML AMP 2ML 100 MCG IVP ×2 (02:41→18:26)
[2025-06-18] MEDS: RINGERS LACTATED 1000 ML 1,000 ML 100 ML IV ×2 (05:21→15:25)
[2025-06-18 05:53] LABS: Swb Mxed in Solvent 1 min? Yes
[2025-06-18 06:06] LABS: Rupture of Fetal Membranes Negative (Negative)
--- NOTE | 2025-06-18 10:24 | ESPR_ITS ---
Documentation for date of: 06/18/25 OB Labor Progress Note Pelvic Exam Dilation (cm): 4 Effacement (%): 50 station: -3 Amniotic membrane status: Intact Contractions Monitor mode: External Contraction frequency: 2-4 Contraction pattern: Coupling Contraction intensity: Mild Status status: Category l Assessment and Plan Assessment: induction ongoing Plan OB labor note: continuous present management History of Present Illness HPI Patient is a 5 para 3-0-1-3 at 38 weeks and 5 days who is presenting to labor and delivery triage. Patient was scheduled for induction of labor for late term due to an error in her dates her dates were changed and she was brought in for NST and biophysical profile. 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 Today on presentation she was noted to have oligohydramnios and she was admitted for induction of labor. Her record was reviewed as per available information in the chart. Her labs were reviewed and are as follows Initial labs done on 04/11/2025 shows hepatitis B negative hepatitis C negative RPR nonreactive rubella is nonimmune blood group is O+ antibody screen negative HIV nonreactive gonorrhea and Chlamydia negative hemoglobin 10.3 A1c was 5.5 gestational 1 hour diabetes screen was 137 NIPT negative for trisomies of 1318 and 21 gender consistent with male SMA and CF screening is negative Group B strep negative on 05/19/2020
[2025-06-18] MEDS: PROMETHAZINE HCL SYRUP 6.25 MG/5 ML UDC 25 MG PO (13:44)
[2025-06-18] MEDS: OXYTOCIN in NS 30 units 30 UNIT/500 ML BAG IV (18:30)
[2025-06-19] VITALS (24 sets, daily range): BP systolic 110–129; BP diastolic 56–80; PULSE 68–90; RESP 16–20; TEMP 36.6–36.9; O2SAT 96–99
[2025-06-19] MEDS: OXYTOCIN in NS 20 units 20 UNIT/1,000 ML BAG 125 UNIT IV (00:20)
--- NOTE | 2025-06-19 00:30 | OBDSUM_ITS ---
Data (Maradiaga) Data Hx Section: No Maternal Blood Type: O Pos : 5 Term: 3 : 0 Livin Abortions: Spontaneous & Theraputic: 1 Delivery Data (Maradiaga) Labor Data Induction/Augmentation Agent: Cytotec-PO, Cervidil and Pitocin ROM date: 06/19/25 ROM time: 00:15 Amniotic membrane rupture type: Artificial Amniotic fluid description: Clear Delivery Data Nellis delivery date: 06/19/25 Gestational age (weeks): 39 Gestational age (days): 0 Placenta delivery date: 06/19/25 Delivered by: [employer] And Back[employer] Administrator at delivery: No Delivery Method Delivery method: Normal Vaginal Delivery Presentation: Vertex position: OA Delivery Room Medications Delivery room medications: Pitocin 20 u IV Placenta Placenta delivery description: Spontaneous Episiotomy Episiotomy description: None Umbilical Cord cord description: 3 Vessels Complications Complications: none Nellis Data (Maradiaga) Data order: 1 's gender: Male
[2025-06-19] MEDS: IBUPROFEN TAB 400 MG TABLET 800 MG PO (01:15)
[2025-06-19] MEDS: BENZO/LANO/ALOE (Dermoplast) 60 GM CAN 1 SPRAY TOP (01:28)
[2025-06-19] MEDS: BENZONATATE 100 MG CAPSULE 200 MG PO ×2 (02:56→19:54)
[2025-06-19 06:15] LABS: Basophils # (Auto) 0.0 Thou/mm3 (0.0-0.2); Basophils % (Auto) 0 % (0-2.5); Eosinophils # (Auto) 0.1 Thou/mm3 (0.0-0.5); Eosinophils % (Auto) 1 % (0-10); Hematocrit 27.3 % (36.0-46.0); Immature Granulocytes Auto 0.09 Thou/mm3 (0.00-0.00); Lymphocytes # (Auto) 2.6 Thou/mm3 (1.0-4.8); Lymphocytes % (Auto) 21 % (10-50); Mean Corpuscular HGB Conc 29.7 g/dl (31.0-37.0); Mean Corpuscular Hemoglobin 22.3 pg (25.0-35.0); Mean Corpuscular Volume 75 fL (80-100); Monocytes # (Auto) 1.0 Thou/mm3 (0.0-0.8); Monocytes % (Auto) 8 % (0-12); Neutrophils # (Auto) 8.5 Thou/mm3 (1.8-7.7); Neutrophils % (Auto) 69 % (37-80); Nucleated Red Blood Cell # 0.00 Thou/mm3 (0.00-0.00); Nucleated Red Blood Cell % 0 /100 WBC (0); Platelet Count 228 Thou/mm3 (140-440); RDW Standard Deviation 45.6 fL (36.4-46.3); Red Blood Count 3.63 Miln/mm3 (4.00-5.20); White Blood Count 12.5 Thou/mm3 (3.6-11.0)
[2025-06-19 06:20] LABS: Hemoglobin 8.1 g/dL (12.0-16.0)
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
--- NOTE | 2025-06-19 16:05 | PC.SS ---
COLD MOLDING PRESS OPERATOR initiated CWS report due to the patient possessing an active CWS case. Verbal report provided to CWS staff, Kelsy Delong. Written report to be submitted electronically to CWS screening unit. Bedside nurse notified of report submittal.
--- NOTE | 2025-06-19 20:47 | PC.NURSE ---
BOLA, Jennifer from [facility], Neha from [facility] Editor [employer], Neha [facility] and melinda bryson came and saw the patient around 20:30 PM.
[2025-06-20 03:30] VITALS: BP 110/65; PULSE 79; RESP 18; TEMP 37.1; O2SAT 97
--- NOTE | 2025-06-20 05:07 | PC.LAC ---
CPS involved. Call [phone] if patient is to be discharge. Patsy from [facility] stated that they have authority for temporary custody and usp of the baby. Paper work on baby's chart.
--- NOTE | 2025-06-20 05:16 | PC.NURSE ---
CPS involved. Call [phone] if patient will be discharge. Patsy from [facility] informed this nurse that they will have the baby in temporary custody and skilled nursing. Paper work on baby's chart.
[2025-06-20 07:30] VITALS: BP 111/63; PULSE 86; RESP 16; TEMP 36.9; O2SAT 97
--- NOTE | 2025-06-20 07:30 | PD.LDPPPRG ---
Subjective Subjective Interval history: Delivery type: Patient doing well this morning. No acute complaints. Ambulating, tolerating p.o., and voiding without difficulty. HTN/Pre-E screen negative: No CP, SOB, LUU, visual changes, RUQ pain. : yes Lochia: diminishing Bowel: Flatus + / BM + Exam Vital Signs Temp Pulse Resp BP Pulse Ox O2 Del Method 98.8 F 79 18 110/65 97 Room Air 06/20/25 03:30 06/20/25 03:30 06/20/25 03:30 06/20/25 03:30 06/20/25 03:30 06/20/25 03:30 Constitutional Constitutional: no acute distress Routine HEENT Exam Head: Present normocephalic and atraumatic Eye: Present EOMI and PERRL ENT: Present mucous membranes moist Routine Neck Exam Neck: Present supple and trachea midline Routine Respiratory Exam Respiratory: Present chest non-tender, lungs clear, normal breath sounds and no resp distress Routine Cardiovascular Exam Cardiovascular: Present RRR Routine Abdominal Exam Abdominal: Present soft and normoactive bowel sounds Routine Extremities Exam Extremities: Present full ROM Routine Skin Exam Skin: Present intact, dry and warm Routine Neurological Exam Neurological: Present alert, oriented X3 and CN II-XII intact Routine Psychiatric Exam Psychiatric: Present normal affect and normal thought process Objective Labs 06/19/25 05:42 Assessment & Plan Problem List (1) Encounter for supervision of high risk in third trimester, antepartum: Status: Acute Assessment and plan: 1. Continue routine /post-op care 2. Labs reviewed, cbc appropriate 3. Remove dressing/Guerrero 4. Encourage to ambulate, shower 5. Encourage PO intake, breast feeding Time Spent With Patient Time: Total time spent is greater than 50% in coordination of care (as documented) at patient's floor/unit and/or counseling patient:
--- NOTE | 2025-06-20 07:31 | PD.LDDS ---
DS: Providers Provider Date of admission: 06/17/25 13:23 Primary care physician: Physician No Primary/Family Admitting Provider: Mert Chance MD Attending Provider on Admission: Mert Chance MD Consults: 06/19/25 00:33 Referral Routine Comment: Attending Provider on DC: Mert Chance MD Discharging Provider: Mert Chance MD DS: Diagnosis Discharge Diagnosis (1) Encounter for supervision of high risk in third trimester, antepartum: Status: Acute Problem List Completed Was Problem List Reviewed/Reconciled?: Yes Summary/Hosp Course Brief History: Patient is a 5 para 3-0-1-3 at 38 weeks and 5 days who is presenting to labor and delivery triage. Patient was scheduled for induction of labor for late term due to an error in her dates her dates were changed and she was brought in for NST and biophysical profile. Patient receives care with CNM at the [facility]. Today on presentation she was noted to have oligohydramnios and she was admitted for induction of labor. Her record was reviewed as per available information in the chart. Her labs were reviewed and are as follows Initial labs done on 04/11/2025 shows hepatitis B negative hepatitis C negative RPR nonreactive rubella is nonimmune blood group is O+ antibody screen negative HIV nonreactive gonorrhea and Chlamydia negative hemoglobin 10.3 A1c was 5.5 gestational 1 hour diabetes screen was 137 NIPT negative for trisomies of 1318 and 21 gender consistent with male SMA and CF screening is negative Group B strep negative on 05/19/2020 Peripartum Data Delivery Method: Normal Vaginal Delivery Episiotomy Description: None Time Spent with Patient Time attestation: Total time spent providing and/or coordinating discharge services: Exam Vital Signs Temp Pulse Resp BP Pulse Ox O2 Del Method 98.8 F 79 18 110/65 97 Room Air 06/20/25 03:30 06/20/25 03:30 06/20/25 03:30 06/20/25 03:30 06/20/25 03:30 06/20/25 03:30 Discharge Plan Plan Patient Disposition: HOME (Self Care) Patient condition on transfer: Stable Prescriptions/Referrals Prescriptions/Med Rec: New docusate sodium [Stool Softener] 100 mg capsule 100 mg PO QDAY 30 Days Qty: 30 0RF ibuprofen 600 mg tablet 600 mg PO Q6H MDD 4 PRN (Reason: fever or pain) 10 Days Qty: 40 0RF Continued ferrous sulfate 325 mg (65 mg iron) tablet 325 mg PO BID Qty: 60 2RF Vitamin 27 mg iron- 800 mcg Tablet 1 tab PO QDAY ferrous sulfate 325 mg (65 mg iron) tablet 325 mg PO TID Qty: 60 0RF Referrals: Mert Chance MD [Physician, [employer]] No Primary/Family,Physician [Primary Care Provider] Patient/Caregiver Discharge Instructions Meds to Beds: Yes Discharge Activity: activity as tolerated Education Materials: After a Vaginal , Healthy Weight Loss After , Perineum Care After Childbirth, Depression, After Delivery Concerns, Breast Care After Print Language: Yakut Stand Alone Forms: Jessica Award Info., Patient Portal Info Letter Discharge Order Discharge Orders: Discharge (Routine); Ordered 06/20/25 Ordered By: Mert Chance Planned Discharge Date 06/20/25
[2025-06-20] MEDS: IBUPROFEN TAB 400 MG TABLET 800 MG PO (08:49)
--- NOTE | 2025-06-20 09:37 | PC.NURSE ---
Went over Discharge paperwork with patient. Patient signed discharge at 0930. Pt would like to see her baby who is in the nicu before she goes. After patient is finished visiting her baby, and patient leave the floor, will put in the discharge time.
== END 2025-06-20 11:58 | disposition home or self-care (01) | DRG 807 ==
LOC: S4S1 14:04 → S4SX 14:05 → S4NX 06-19 05:07 → S4SX 06-19 09:22
PROVIDERS: Obstetrics & Gynecology; Admitting Provider Obstetrics & Gynecology; Referring Provider Obstetrics & Gynecology; Visit Provider Obstetrics & Gynecology
DX: O41.03X0 Oligohydramnios, third trimester, not applicable or unspecified (principal); Z37.0 Single live birth; Z3A.38 38 weeks gestation of pregnancy
CPT/HCPCS: 36415; 59025; 76805; 80307; 84112; 85025; 86780; 86850; 86900; 86901; 87502; J2590; J2795; J3010; J7120; S0191; A9270